=== PATIENT | female | born 1965 | race African-American/Black ===

== ENCOUNTER 2022-07-06 13:54 | Inpatient (IN) | payer OTHER ==
[2022-07-06 15:21] VITALS: BMI 32.0
[2022-07-06] MEDS ORDERED: methaDONE HCL 10 MG TABLET (FOR DETOX USE ONLY) PO ONE (16:07)
[2022-07-06] MEDS ORDERED: MAGNESIUM HYDROX 2400MG/30ML ORAL SUSPENSION 30 ML CUP PO PRN (16:07)
[2022-07-06] MEDS ORDERED: BENZOCAINE/MENTHOL (CHLORASEPTIC ) LOZENGE MM PRN (16:07)
[2022-07-06] MEDS ORDERED: IBUPROFEN 400 MG TABLET (FP) PO PRN (16:07)
[2022-07-06] MEDS ORDERED: MAG HYDROX/AL HYDROX/SIMETH 30 ML UNIT-DOSE CUP PO PRN (16:07)
[2022-07-06] MEDS ORDERED: NALOXONE HCL (KLOXXADO) 8 MG SPRAY NS PRN (16:07)
[2022-07-06] MEDS ORDERED: NICOTINE 10 MG CARTRIDGE (INHALER) IH PRN (16:07)
[2022-07-06] MEDS ORDERED: NICOTINE POLACRILEX 2 MG GUM BUC PRN (16:07)
[2022-07-06] MEDS ORDERED: DICYCLOMINE HCL 10 MG CAPSULE PO PRN (16:07)
[2022-07-06] MEDS ORDERED: POLYETHYLENE GLYCOL (HEALTHYLAX) 3350 17 GM PACKET PO PRN (16:07)
[2022-07-06] MEDS ORDERED: ACETAMINOPHEN 325 MG TABLET (FP) PO PRN ×2 (16:07)
[2022-07-06] MEDS ORDERED: LOPERAMIDE HCL 2 MG CAPSULE PO PRN (16:07)
[2022-07-06] MEDS ORDERED: ONDANSETRON *ODT* 4 MG TABLET SL PRN (16:07)
[2022-07-06] MEDS ORDERED: BISMUTH SUBSALICYLATE 524 MG/30 ML PO PRN (16:07)
[2022-07-06] MEDS ORDERED: methaDONE HCL 10 MG TABLET (FOR DETOX USE ONLY) ONE (17:00)
[2022-07-06] MEDS: THIAMINE HCL 100 MG TABLET (FP) PO SCH (22:42)
[2022-07-06] MEDS: METHOCARBAMOL 500 MG TABLET PO PRN (22:42)
[2022-07-06] MEDS: cloNIDine HCL 0.1 MG TABLET PO PRN (22:42)
[2022-07-06] MEDS: MELATONIN 5 MG TABLETS PO SCH (22:42)
[2022-07-06] MEDS: PRENATAL VITAMINS W/ FOLIC ACID TABLET (FP) PO SCH (22:43)
[2022-07-07] MEDS: METHOCARBAMOL 500 MG TABLET PO PRN ×2 (05:34→22:02)
[2022-07-07] MEDS: PRENATAL VITAMINS W/ FOLIC ACID TABLET (FP) PO SCH (10:35)
[2022-07-07 10:39] LABS: HEMATOCRIT 33.1 % (32.4-45.2); HEMOGLOBIN 10.7 GM/dL (10.7-15.3); MCHC 32.5 g/dl (32.0-36.0); MEAN CELL VOLUME 83.2 fl (80-96); MEAN PLT VOLUME 7.9 fl (7.5-11.1); PLATELET COUNT 574 10^3/uL (134-434); RBC 3.97 M/mm3 (3.60-5.2); RDW 16.6 % (11.6-15.6); WHITE BLOOD COUNT 8.3 K/mm3 (4.0-10.0)
[2022-07-07 10:54] LABS: CALCIUM 9.6 mg/dL (8.5-10.1)
[2022-07-07 10:57] LABS: CREATININE 0.8 mg/dL (0.55-1.3)
[2022-07-07 10:59] LABS: BILIRUBIN,TOTAL 0.3 mg/dL (0.2-1); TOT PROT 6.2 g/dl (6.4-8.2)
[2022-07-07] MEDS ORDERED: FLU VACC QS2022-23(6MOS UP)/PF 60 MCG/0.5 ML SYRINGE IM ONE (12:00)
[2022-07-07] MEDS: FLUoxetine HCL 20 MG CAPSULE PO SCH (12:58)
[2022-07-07] MEDS: MELATONIN 5 MG TABLETS PO SCH (22:02)
[2022-07-07] MEDS: THIAMINE HCL 100 MG TABLET (FP) PO SCH (22:02)
[2022-07-08] MEDS ORDERED: methaDONE HCL 10 MG TABLET (FOR DETOX USE ONLY) PO ONE (10:00)
[2022-07-08] MEDS: PRENATAL VITAMINS W/ FOLIC ACID TABLET (FP) PO SCH (10:23)
[2022-07-08] MEDS: FLUoxetine HCL 20 MG CAPSULE PO SCH (10:23)
[2022-07-08] MEDS: MELATONIN 5 MG TABLETS PO SCH (22:43)
[2022-07-08] MEDS: cloNIDine HCL 0.1 MG TABLET PO PRN (22:43)
[2022-07-08] MEDS: THIAMINE HCL 100 MG TABLET (FP) PO SCH (22:43)
[2022-07-08] MEDS: METHOCARBAMOL 500 MG TABLET PO PRN (22:44)
[2022-07-09] MEDS: PRENATAL VITAMINS W/ FOLIC ACID TABLET (FP) PO SCH (10:14)
[2022-07-09] MEDS: METHOCARBAMOL 500 MG TABLET PO PRN ×2 (10:15→17:17)
[2022-07-09] MEDS: FLUoxetine HCL 20 MG CAPSULE PO SCH (10:15)
[2022-07-09] MEDS: THIAMINE HCL 100 MG TABLET (FP) PO SCH (22:20)
[2022-07-09] MEDS: MELATONIN 5 MG TABLETS PO SCH (22:20)
[2022-07-10] MEDS ORDERED: methaDONE HCL 10 MG TABLET (FOR DETOX USE ONLY) PO ONE (10:00)
[2022-07-10] MEDS: PRENATAL VITAMINS W/ FOLIC ACID TABLET (FP) PO SCH (10:18)
[2022-07-10] MEDS: FLUoxetine HCL 20 MG CAPSULE PO SCH (10:18)
[2022-07-10] MEDS: METHOCARBAMOL 500 MG TABLET PO PRN ×2 (10:18→17:45)
[2022-07-10 21:39] VITALS: TEMP 97.3
[2022-07-10] MEDS: THIAMINE HCL 100 MG TABLET (FP) PO SCH (21:55)
[2022-07-10] MEDS: IBUPROFEN 600 MG TABLET (FP) PO PRN (21:55)
[2022-07-10] MEDS: MELATONIN 5 MG TABLETS PO SCH (21:56)
[2022-07-11 06:50] VITALS: BP 138/77; PULSE 61; RESP 18
[2022-07-11] MEDS: PRENATAL VITAMINS W/ FOLIC ACID TABLET (FP) PO SCH (10:27)
[2022-07-11] MEDS: FLUoxetine HCL 20 MG CAPSULE PO SCH (10:27)
[2022-07-11] MEDS: IBUPROFEN 600 MG TABLET (FP) PO PRN (10:28)
[2022-07-11] MEDS: METHOCARBAMOL 500 MG TABLET PO PRN (10:28)
== END 2022-07-11 13:10 | disposition home or self-care (01) | DRG 773 ==
LOC: YASAS 13:54 → Y6N 17:09
PROVIDERS: ADMIT Allergy & Immunology; ATTEND Surgery
PROC: HZ2ZZZZ Detoxification Services for Substance Abuse Treatment (ICD-10-PCS; principal; 2022-07-06)
DX: F11.23 Opioid dependence with withdrawal (principal); F17.210 Nicotine dependence, cigarettes, uncomplicated; F32.9 Major depressive disorder, single episode, unspecified; F41.9 Anxiety disorder, unspecified; G40.909 Epilepsy, unspecified, not intractable, without status epilepticus; E11.9 Type 2 diabetes mellitus without complications; Z79.84 Long term (current) use of oral hypoglycemic drugs; Z88.1 Allergy status to other antibiotic agents
CPT/HCPCS: 36415; 80053; 82962; 85027; 86780; 87811; C9803-CS; G0008; Q2036; U0003; U0005